=== PATIENT | female | born 1945 | race Caucasian/White ===

== ENCOUNTER 2016-09-10 05:42 | Emergency (ER) | payer OTHER ==
[2016-09-10 07:06] LABS: BASOPHIL 0.6 % (0-2); EOSINOPHIL 2.5 % (0-7); HCT 40.1 % (37.0-47.0); HGB 13.6 g/dl (12.5-16.0); LYMPHOCYTE 36.2 % (15-48); MCH 30.8 pg (25.0-31.0); MCHC 33.9 g/dL (32.0-36.0); MCV 90.7 fL (78.0-100.0); MONOCYTE 7.6 % (0-12); MPV 9.7 fL (6.0-9.5); NEUTROPHIL 53.1 % (41-80); PLT 213 K/uL (150-400); RBC 4.42 M/uL (4.20-5.40); RDW 13.6 % (11.5-14.0); WBC 7.1 K/uL (4.0-10.5)
[2016-09-10 07:07] LABS: INR 0.95 (0.9-1.2); PROTHROMBIN TIME 12.3 SECONDS (11.7-14.0); PTT 26.9 SECONDS (23.2-31.4)
[2016-09-10 07:14] LABS: ALBUMIN 4.3 g/dL (3.4-4.8); BILIRUBIN - TOTAL 0.3 mg/dL (0.1-1.0); CREATININE 0.7 mg/dL (0.5-1.0); POTASSIUM 3.6 mmol/L (3.5-5.1); PRO-BNP 55 pg/mL (0-125); TOTAL PROTEIN 7.3 g/dL (6.4-8.3); TROPONIN T < 0.010 ng/mL
== END 2016-09-10 08:50 | disposition home or self-care (01) ==
LOC: FER 05:42
PROVIDERS: Emergency Medicine Emergency Medical Services
DX: R06.02 Shortness of breath (principal); R60.0 Localized edema; I50.9 Heart failure, unspecified; J45.909 Unspecified asthma, uncomplicated; J44.9 Chronic obstructive pulmonary disease, unspecified; Z88.5 Allergy status to narcotic agent; Z88.8 Allergy status to other drugs, medicaments and biological substances
CPT/HCPCS: 36415; 71010; 80053; 83880; 84484; 85025; 85610; 85730; 87450; 93005; J1940

== ENCOUNTER 2021-03-27 16:12 | Emergency (ER) | payer OTHER ==
[~2021-03-27 16:12] MED LIST: BACLOFEN 10MG T10 MG PO; BUSPAR5 MG PO; CYMBALTA 30MG C30 MG PO; DELTASONE20 MG PO; EPIPEN 2-P0.3 MG/0.3 IJ; FLEXERIL10 MG PO; LIDOCAINE 5% P1 EACH TOP; LISINOPRIL-HCT1 EAC1 PO; MEDROL 4MG DOSEP4 MG PO; MYSOLINE50 MG PO; NAPROXEN250 MG PO; NORCO 5-325 TA1 EACH PO; NYSTOP60 GM TOP; PEPCID AC20 MG PO; PREDNISONE 10MG10 MG PO; PREDNISONE 20MG20 MG PO; SYMBICORT 80-10.2 GM INH; VENTOLIN HFA IN18 GM INH; VOLTAREN **OUT50 MG PO; ZOMIG5 MG PO; ZOVIRAX800 MG PO
[2021-03-27 17:55] LABS: BASOPHIL 0.4 % (0-2); EOSINOPHIL 0.2 % (0-7); HCT 42.4 % (37.0-47.0); HGB 13.8 g/dl (12.5-16.0); LYMPHOCYTE 33.7 % (15-48); MCH 30.5 pg (25.0-31.0); MCHC 32.5 g/dL (32.0-36.0); MCV 93.8 fL (78.0-100.0); MONOCYTE 12.7 % (0-12); MPV 9.9 fL (6.0-9.5); NEUTROPHIL 52.6 % (41-80); NRBC 0; PLT 152 K/uL (150-400); RBC 4.52 M/uL (4.20-5.40); RDW 12.6 % (11.5-14.0); WBC 5.2 K/uL (4.0-10.5)
[2021-03-27 18:29] LABS: ALBUMIN 3.6 g/dL (3.4-5.0); BILIRUBIN - TOTAL 0.4 mg/dL (0.2-1.0); BUN/CREAT RATIO (CALC) 15.4 RATIO; CREATININE 0.91 mg/dL (0.51-0.95); GLOBULIN (CALCULATION) 3.9 g/dL; POTASSIUM 3.6 mmol/L (3.5-5.1); TOTAL PROTEIN 7.5 g/dL (6.4-8.2)
[2021-03-27 19:37] LABS: BILIRUBIN 1+ mg/dL (NEGATIVE); BLOOD NEGATIVE Ery/uL (NEGATIVE); CLARITY CLEAR (CLEAR); COLOR YELLOW (YELLOW); GLUCOSE (U) NORMAL (NORMAL); LEUKOCYTES TRACE Leu/uL (NEGATIVE); NITRITE NEGATIVE (NEGATIVE); PROTEIN NEGATIVE (NEGATIVE); SPECIFIC GRAVITY 1.025 (1.001-1.030); UROBILINOGEN 0.2 mg/dL (0.2-1.0)
[2021-03-27 19:46] LABS: AMORPHOUS URATES CRYSTALS TRACE; BACTERIA 1+; MUCOUS MODERATE; SQUAMOUS EPITHELIAL CELLS >50
== END 2021-03-27 21:25 | disposition home or self-care (01) ==
LOC: FER 16:12
PROVIDERS: Emergency Medicine
DX: G20 Parkinson's disease (principal); Z88.5 Allergy status to narcotic agent
CPT/HCPCS: 36415; 71045; 80053; 81001; 82150; 83690; 84484; 85025; 93005

== ENCOUNTER 2022-01-25 14:22 | Emergency (ER) | payer OTHER ==
[2022-01-25] MEDS ORDERED: NORCO 5-325 TA1 EACH PO (16:13)
[2022-01-25] MEDS ORDERED: CYCLOBENZAPRINE10 MG PO (16:13)
== END 2022-01-25 16:30 | disposition home or self-care (01) ==
LOC: FER 14:22
DX: S16.1XXA Strain of muscle, fascia and tendon at neck level, initial encounter (principal); I10 Essential (primary) hypertension; J44.9 Chronic obstructive pulmonary disease, unspecified; Z88.5 Allergy status to narcotic agent; Z28.311 Partially vaccinated for COVID-19
CPT/HCPCS: 99283; J1885